=== PATIENT | female | born 1960 | race Caucasian/White ===

== ENCOUNTER 2016-11-13 13:41 | Emergency (ER) | payer SELFPAY ==
[2016-11-13 13:41] VITALS: BMI 27.3
[2016-11-13 14:04] VITALS: TEMP 98.4; O2SAT 98
--- NOTE | 2016-11-13 14:32 | C.PDOC ---
History Of Present Illness 56 y/o F p/w itchy, erythematous rash to chest and face since yesterday that she describes as an allergy. She denies dyspnea, throat swelling. She does not know what the allergen was. Denies fever, vomiting. Time Seen by Provider: 11/13/16 14:12 Chief Complaint (Nursing): Allergic Reaction Past Medical History Vital Signs: Last Vital Signs Temp 98.4 F 11/13/16 14:01 Pulse 89 11/13/16 14:01 Resp 20 11/13/16 14:01 BP 131/86 11/13/16 14:01 Pulse Ox 98 11/13/16 14:01 - Medical History PMH: CAD, HTN, Kidney Stones, Chronic Kidney Disease Surgical History: Appendectomy, Cholecystectomy Family History: States: CAD - Social History Hx Tobacco Use: No Hx Alcohol Use: No Hx Substance Use: No - Immunization History Hx Tetanus Toxoid Vaccination: Yes Hx Influenza Vaccination: Yes Hx Pneumococcal Vaccination: Yes Review Of Systems Except As Marked, All Systems Reviewed And Found Negative. Constitutional: Negative for: Fever Cardiovascular: Negative for: Chest Pain Physical Exam - Physical Exam Appears: No Acute Distress Skin: Rash (urticaria to face and chest) Head: Normacephalic Eye(s): bilateral: PERRL Oral Mucosa: Moist Tongue: No Swelling Throat: No Erythema, No Exudate, No Drooling Neck: Supple Chest: No Tenderness Cardiovascular: Rhythm Regular Respiratory: Normal Breath Sounds, No Stridor, No Wheezing Gastrointestinal/Abdominal: Soft, No Tenderness Extremity: No Swelling Pulses: Left Radial: Normal, Right Radial: Normal Neurological/Psych: Normal Speech, Normal Cognition ED Course And Treatment O2 Sat by Pulse Oximetry: 98 Medical Decision Making Medical Decision Making: Impression: 56 y/o F p/w general allergic reaction without anaphylaxis. Plan: Benadryl, Pepcid. Mild, will not initiate steroids at this time. Discharge home, f/u PMD, instructed to return to the ER immediately for any difficulty breathing or swelling in the throat area. Disposition - Disposition Disposition: HOME/ ROUTINE Disposition Time: 14:33 Condition: STABLE Prescriptions: DiphenhydrAMINE [Benadryl] 2 cap PO Q8 #25 cap Famotidine [Pepcid] 1 tab PO BID #14 tab Instructions: General Allergic Reaction (ED) - Clinical Impression Clinical Impression: Allergic urticaria
[2016-11-13 15:08] VITALS: BP 126/75; PULSE 79; RESP 88
== END 2016-11-13 15:09 | disposition home or self-care (01) ==
LOC: C.ER 13:41
DX: L50.0 Allergic urticaria (principal)

== ENCOUNTER 2018-08-17 11:48 | Emergency (ER) | payer OTHER ==
[2018-08-17 11:49] VITALS: BMI 27.3
[2018-08-17 12:05] VITALS: BP 142/85; PULSE 90; RESP 16; TEMP 97.8; O2SAT 98
--- NOTE | 2018-08-17 12:20 | C.PDOC ---
History Of Present Illness 57 year old female presents to the ED complaining of face redness status post using mud mask 2 days ago. Reports she left the mudmask on her face for the required 20 minutes, as instructed, and then noticed bilateral redness to bilateral cheekbones when she washed it off. Denies itching, pain, drainage, wheezing, shortness of breath, chest, swelling of lips or tongue, or difficulty swallowing. Denies any use of oral antihistamine medications. Time Seen by Provider: 08/17/18 11:55 History Per: Patient History/Exam Limitations: no limitations Onset/Duration Of Symptoms: Days (2) Current Symptoms Are (Timing): Still Present Possible Cause: Other (Facemask ) Associated Symptoms: Redness Recent travel outside of the [place]: No Past Medical History Reviewed: Historical Data, Nursing Documentation, Vital Signs Vital Signs: Last Vital Signs Temp 97.8 F 08/17/18 12:02 Pulse 90 08/17/18 12:02 Resp 16 08/17/18 12:02 BP 142/85 08/17/18 12:02 Pulse Ox 98 08/17/18 12:02 - Medical History PMH: CAD, HTN, Kidney Stones, Chronic Kidney Disease Surgical History: Appendectomy, Cholecystectomy Family History: States: CAD - Social History Hx Tobacco Use: No Hx Alcohol Use: No Hx Substance Use: No - Immunization History Hx Tetanus Toxoid Vaccination: Yes Hx Influenza Vaccination: Yes Hx Pneumococcal Vaccination: Yes Review Of Systems Constitutional: Negative for: Fever, Chills Eyes: Negative for: Eyelid Inflammation, Redness ENT: Negative for: Mouth Swelling, Throat Pain, Throat Swelling Cardiovascular: Negative for: Chest Pain Respiratory: Negative for: Shortness of Breath, Wheezing Gastrointestinal: Negative for: Nausea, Vomiting, Abdominal Pain, Diarrhea Skin: Positive for: Other (redness to b/l cheekbones ). Negative for: Rash Physical Exam - Physical Exam Appears: Non-toxic, No Acute Distress Skin: Warm, Dry, No Rash, Other (erythema noted to b/l cheekbones ) Head: Normacephalic Eye(s): bilateral: PERRL, EOMI Ear(s): Bilateral: Normal Nose: Normal Oral Mucosa: Moist Tongue: Normal Appearing Lips: Normal Appearing Teeth: Normal Dentition Gingiva: Normal Appearing Throat: Normal, No Erythema, No Exudate Neck: Trachea Midline, Supple Lymphatic: No Adenopathy (lymphoadenopathy ) Chest: Symmetrical Cardiovascular: Rhythm Regular Respiratory: No Accessory Muscle Use, No Rales, No Rhonchi, No Wheezing Gastrointestinal/Abdominal: Soft, No Tenderness Extremity: Bilateral: Atraumatic, Normal Color And Temperature, Normal ROM Neurological/Psych: Oriented x3, Normal Speech Gait: Steady ED Course And Treatment O2 Sat by Pulse Oximetry: 98 (RA) Pulse Ox Interpretation: Normal Medical Decision Making Medical Decision Making: Plan - Benadryl 50mg PO Patient instructed to use Benadryl cream. Advised to follow up with PMD or Email Engineer. Instructed to return to the ED if symptoms worsen or persist. Patient verbalizes understanding and is in agreement with plan. Patient is stable for discharge. Disposition Counseled Patient/Family Regarding: Diagnosis, Need For Followup, Rx Given - Disposition Referrals: Monty Cavazos MD [Staff Provider] - Disposition: HOME/ ROUTINE Disposition Time: 12:59 Condition: STABLE Additional Instructions: Start Benadryl cream to face twice a day Follow up with PMD or Derm if symptoms persist Return to ED if symptoms Prescriptions: Diphenhydramine 1% [BENADRYL 1% Zinc Acetate -0.1%] 1 cre EXT BID #1 tube Instructions: Contact Dermatitis (DC) Forms: [employer] (Namibian) Print Language: MONTSERRATIAN - Clinical Impression Clinical Impression: Allergic contact dermatitis - PA / S[employer]IOR [employer] / Resident Statement MD/DO has reviewed & agrees with the documentation as recorded. - Scribe Statement The provider has reviewed the documentation as recorded by the Maria Doloresibjessica Giron All medical record entries made by the Bess were at my direction and personally dictated by me. I have reviewed the chart and agree that the record accurately reflects my personal performance of the history, physical exam, medical decision making, and the department course for this patient. I have also personally directed, reviewed, and agree with the discharge instructions and disposition.
== END 2018-08-17 13:10 | disposition home or self-care (01) ==
LOC: C.ER 11:48
DX: L23.9 Allergic contact dermatitis, unspecified cause (principal)

== ENCOUNTER 2018-10-15 08:10 | Outpatient (CLI) | payer OTHER | END 2018-10-15 08:11 | disposition home or self-care (01) | LOC: C.USIC 08:11 | DX: B18.1 Chronic viral hepatitis B without delta-agent (principal) ==